=== PATIENT | female | born 1990 ===

== ENCOUNTER 2024-07-20 08:35 | Outpatient (CLI) | payer OTHER | END 2024-07-20 08:38 | disposition home or self-care (01) | LOC: PRENATAL 08:35 | PROVIDERS: ATTEND Obstetrics & Gynecology Maternal & Fetal Medicine | DX: O44.00 Complete placenta previa NOS or without hemorrhage, unspecified trimester (principal); Z3A.20 20 weeks gestation of pregnancy ==